=== PATIENT | male | born 1950 | race Caucasian/White ===

== ENCOUNTER 2022-10-03 10:09 | Day surgery (SDC) | payer MEDICARE ==
[~2022-10-03] VITALS: Ht 177.8 cm; Wt 98.9 kg
[~2022-10-03 10:09] MED LIST: ADVAIR DISKU IN; ALLERGY RELF10 M3 PO; ATIVAN1 M1 PO; EPLERENONE50 MG PO; NORVASC PO; PEPCID20 MG PO; PERCOCET 5/325M1 TAB PO; TRAZODONE50 MG PO; ZESTRIL10 M1 PO; [UNRECOGNIZED DRUG - OTHER]
[2022-10-03 14:30] VITALS: BP 159/90
== END 2022-10-03 14:17 | disposition home or self-care (01) ==
LOC: ORM 10:09
PROVIDERS: ATTEND Surgery
PROC: 0JB70ZZ Excision of Back Subcutaneous Tissue and Fascia, Open Approach (ICD-10-PCS; principal; 2022-10-03)
PROC: 0JB40ZZ Excision of Right Neck Subcutaneous Tissue and Fascia, Open Approach (ICD-10-PCS; 2022-10-03)
DX: D17.1 Benign lipomatous neoplasm of skin and subcutaneous tissue of trunk (principal); D17.0 Benign lipomatous neoplasm of skin and subcutaneous tissue of head, face and neck; I10 Essential (primary) hypertension; F41.9 Anxiety disorder, unspecified
CPT/HCPCS: J0131; J0690